=== PATIENT | male | born 1990 | race Caucasian/White ===

== ENCOUNTER 2016-08-11 14:53 | Emergency (ER) | payer OTHER ==
[~2016-08-11] VITALS: Ht 172.7 cm; Wt 82.0 kg
[2016-08-11 15:05] VITALS: Ht 172.7 cm; Wt 82.0 kg
[2016-08-11] MEDS ORDERED: PSEU30TA38 PO (15:33)
[2016-08-11] MEDS ORDERED: IBUP-1542 PO (15:33)
[2016-08-11] MEDS ORDERED: FLUT9.9S NASAL (15:33)
--- NOTE | 2016-08-11 15:56 | ERD ---
DATE OF SERVICE: 08/11/2016 HISTORY OF PRESENT ILLNESS: The patient is a 25-year-old male coming in complaining of a sore throa t with ear pain and headache. The patient states he had a tactile fever for the last 4 days. He underwood s not checked his fever with a thermometer. His last dose of Nyquil was last night. No sick contac ts. No vomiting, no abdominal pain, no change in urination or bowel movement. PAST MEDICAL HISTORY: No other medical problems. ALLERGIES: No allergies to medications. PAST SURGICAL HISTORY: Denies. SOCIAL HISTORY: Denies. REVIEW OF SYSTEMS: A 12-point review of systems was done. Refer to HPI for positives; all other sy stems negative. PHYSICAL EXAMINATION VITAL SIGNS: Temperature is 98.4, pulse 98, blood pressure is 138/83, respiratory 18, O2 saturation 97% on room air. Pain intensity of 5/10. GENERAL: The patient is well-appearing, well-nourished, no acute distress. HEENT: Atraumatic. Conjunctivae are pink. Pupils equal, round, and reactive to light. There is no s cleral icterus. Tympanic membranes clear bilaterally. Oropharynx clear. No nystagmus or photophobia . CHEST: Clear to auscultation bilaterally. There are no rales, wheezes or rhonchi. HEART: Regular rate and rhythm. No murmurs, clicks, rubs or gallops. No S3 or S4. ABDOMEN: Soft, nontender and nondistended. Good bowel sounds. No rebound or guarding. No gross peterson tonitis. No gross organomegaly or masses. No Hurtado sign or McBurney point tenderness. BACK: No midline or flank tenderness. SKIN: There is no apparent rash or petechia. The skin is warm and dry. DIAGNOSIS: Upper respiratory infection. MEDICAL DECISION MAKING: I have low suspicion for bacterial meningitis or sepsis, low suspicion for pneumonia, low suspicion for bacterial HEENT infection. The patient's exam is nonconcerning. It i s likely associated with viral etiology. I feel that the patient does not need antibiotics at this time. DISCHARGE: The patient is discharged stable. The patient is given prescription for ibuprofen, Flon ase, and Sudafed and told to follow up with primary care within 1 to 2 days for reevaluation. The p atient was told if symptoms progress or worsen to return to the ER. All other questions answered at time of discharge. Discharge summary given at the time of departure. The patient understood and c omplied with plan. Dictated By: MARGIE SYLVESTER for PALLAVI VALDIVIA/JEFFREY Conf#: [id number] DID#: [id number]
== END 2016-08-11 15:45 | disposition home or self-care (01) ==
LOC: FTE 14:53
DX: J06.9 Acute upper respiratory infection, unspecified (principal)
CPT/HCPCS: 99283